=== PATIENT | male | born 1990 | race Hispanic/Latino ===

== ENCOUNTER 2021-04-06 09:08 | Emergency (ER) | payer SELFPAY ==
[~2021-04-06] VITALS: Ht 175.3 cm; Wt 99.8 kg
[2021-04-06 09:43] LABS: COLOR,URINE YELLOW (YELLOW)
[2021-04-06 09:44] LABS: CLARITY,URINE CLEAR (CLEAR); LEUKOCYTE ESTERASE ,URINE NEGATIVE (NEGATIVE); NITRITE,URINE NEGATIVE (NEGATIVE)
[2021-04-06 09:45] LABS: KETONES,URINE NEGATIVE (NEGATIVE); PROTEIN,URINE DIPSTICK NEGATIVE (NEGATIVE); URINE UROBILINOGEN 0.2 mg/dL (0.2 - 1)
[2021-04-06 09:51] LABS: BACTERIA,URINE RARE /HPF; EPITHELIAL CELLS,URINE RARE /LPF
[2021-04-06 09:58] LABS: BASOPHILS % 0.5 % (0.0-1.0); EOSINOPHILS % 0.5 % (0.0-6.0); HEMATOCRIT 45.8 % (38.2-49.6); HEMOGLOBIN 15.5 g/dL (14.0-18.0); LYMPHOCYTES # (AUTO) 0.9 (1.0-3.2); LYMPHOCYTES % 16.1 % (18.0-39.1); MEAN CORPUSCULAR HEMOGLOBIN 31.1 pg (28-32); MEAN CORPUSCULAR HGB CONC 33.8 g/dL (31-35); MEAN CORPUSCULAR VOLUME 91.8 fL (81-99); MONOCYTES # (AUTO) 0.6 (0.2-0.8); MONOCYTES % 9.7 % (4.4-11.3); NEUTROPHILS # (AUTO) 4.1 (2.1-6.9); PLATELET COUNT 152 x10e3/uL (140-360); RED BLOOD COUNT 4.99 x10e6/uL (4.3-5.7); RED CELL DISTRIBUTION WIDTH 12.5 % (11.7-14.4)
[2021-04-06] MEDS ORDERED: SODIUM CHLORIDE 0.9% 50ML 50 ML ONE (10:05)
[2021-04-06] MEDS ORDERED: IOPAMIDOL 370 MG/ML 200 ML INFUS..BTL INJ ONE (10:05)
[2021-04-06 10:16] LABS: ALBUMIN 3.9 g/dL (3.5-5.0); ALBUMIN/GLOBULIN RATIO 1.3 (0.8-2.0); CALCIUM 8.6 mg/dL (8.4-10.2); CREATININE, SERUM 0.82 mg/dL (0.72-1.25)
[2021-04-06] MEDS ORDERED: SODIUM CHLORIDE 0.9% 1000ML 1,000 ML IV SCH (10:45)
[2021-04-06 12:01] VITALS: BP 125/70
== END 2021-04-06 12:06 | disposition home or self-care (01) ==
LOC: ER 09:19
DX: R19.7 Diarrhea, unspecified (principal); Z20.822 Contact with and (suspected) exposure to COVID-19
CPT/HCPCS: 36415; 74177; 80053; 81001; 83690; 85025; 99284; Q9967; U0002

== ENCOUNTER 2021-05-05 10:26 | Emergency (ER) | payer SELFPAY ==
[~2021-05-05] VITALS: Ht 172.7 cm; Wt 97.5 kg
== END 2021-05-05 11:08 | disposition home or self-care (01) ==
LOC: ER 10:34
DX: R05.9 Cough, unspecified (principal); R09.81 Nasal congestion; R52 Pain, unspecified
CPT/HCPCS: 99282

== ENCOUNTER 2021-09-15 12:27 | Emergency (ER) | payer SELFPAY ==
[~2021-09-15] VITALS: Ht 172.7 cm; Wt 97.5 kg
[2021-09-15] MEDS ORDERED: IBUPROFEN 400 MG TAB PO ONE (13:15)
== END 2021-09-15 13:04 | disposition home or self-care (01) ==
LOC: ER 12:38
DX: M25.522 Pain in left elbow (principal); M25.521 Pain in right elbow; G89.29 Other chronic pain; F17.210 Nicotine dependence, cigarettes, uncomplicated
CPT/HCPCS: 99282

== ENCOUNTER 2021-10-28 08:27 | Emergency (ER) | payer SELFPAY ==
[~2021-10-28] VITALS: Ht 167.6 cm; Wt 103.4 kg
[2021-10-28] MEDS ORDERED: KETOROLAC TROMETHAMINE 30 MG/ML VIAL IM ONE (08:45)
[2021-10-28] MEDS ORDERED: CYCLOBENZAPRINE10 MG PO (09:01)
[2021-10-28] MEDS ORDERED: NAPROXEN250 MG PO (09:01)
== END 2021-10-28 09:18 | disposition home or self-care (01) ==
LOC: ER 08:29
DX: R07.89 Other chest pain (principal); R94.31 Abnormal electrocardiogram [ECG] [EKG]
CPT/HCPCS: 71045; 93005; 99283

== ENCOUNTER 2022-01-09 01:22 | Emergency (ER) | payer SELFPAY ==
[~2022-01-09] VITALS: Ht 167.6 cm; Wt 103.4 kg
[~2022-01-09 01:22] MED LIST: CYCLOBENZAPRINE10 MG PO; NAPROXEN250 MG PO
[2022-01-09] MEDS ORDERED: BUPIVACAINE HCL 0.25% 10ML MPF VIAL INJ ONE ×2 (01:44→01:45)
== END 2022-01-09 02:10 | disposition home or self-care (01) ==
LOC: ER 01:30
DX: K08.89 Other specified disorders of teeth and supporting structures (principal); K02.9 Dental caries, unspecified
CPT/HCPCS: 99282

== ENCOUNTER 2022-02-14 13:26 | Emergency (ER) | payer SELFPAY ==
[~2022-02-14] VITALS: Ht 167.6 cm; Wt 103.4 kg
== END 2022-02-14 15:35 | disposition home or self-care (01) ==
LOC: ER 13:40
DX: M54.2 Cervicalgia (principal); S10.83XA Contusion of other specified part of neck, initial encounter; W20.8XXA Other cause of strike by thrown, projected or falling object, initial encounter; Y99.0 Civilian activity done for income or pay
CPT/HCPCS: 72125; 99283